=== PATIENT | female | born 1980 | race Hispanic/Latino ===

== ENCOUNTER 2023-02-17 14:30 | Emergency (ER) | payer OTHER ==
[~2023-02-17] VITALS: Ht 154.9 cm; Wt 65.3 kg
[~2023-02-17 14:30] MED LIST: GLYB2.5T6 GT
[2023-02-17 14:45] VITALS: BP 123/69
[2023-02-17] MEDS ORDERED: CYCL5TAB PO (14:56)
[2023-02-17] MEDS ORDERED: KETO10TA2 PO (14:56)
== END 2023-02-17 15:20 | disposition home or self-care (01) ==
LOC: EDH 14:30
DX: M62.830 Muscle spasm of back (principal); V89.2XXA Person injured in unspecified motor-vehicle accident, traffic, initial encounter; Y93.89 Activity, other specified; Y92.89 Other specified places as the place of occurrence of the external cause; Y99.8 Other external cause status
CPT/HCPCS: 81025